=== PATIENT | male | born 1970 | race African-American/Black ===

== ENCOUNTER 2016-08-28 17:19 | Emergency (ER) | payer OTHER ==
[~2016-08-28] VITALS: Ht 165.1 cm; Wt 97.2 kg
[2016-08-28 18:08] LABS: ADD MIUA? NO; BILIRUBIN NEGATIVE; BLOOD NEGATIVE; COLOR STRAW ((YELLOW)); GLUCOSE (STRIP) >=500; KETONES NEGATIVE; LEUKOCYTES NEGATIVE; NITRITE NEGATIVE; PROTEIN (STRIP) NEGATIVE; SPECIFIC GRAVITY 1.027 (1.000-1.030); UCUL ADDED? NO; UROBILINOGEN 0.2 MG/DL (0.2-1.0)
[2016-08-28 18:14] LABS: EOSINOPHIL (%) 1.5 % (0-5); EOSINOPHIL COUNT 0.1 K/uL (0-0.3); HEMATOCRIT 44.6 % (38.0-50.0); IMMATURE GRANULOCYTE (%) 0.2 % (0.0-0.7); INSTRUMENT ABS NEUTROPHIL CT 2.5 K/uL; LYMPHOCYTE COUNT 2.1 K/uL (1.0-2.8); MCH 28.2 PG (29.0-34.0); MCHC 34.5 G/DL (30.0-36.0); MCV 81.5 FL (86-99); MEAN PLAT.VOLUME 9.5 uM^3 (9.0-12.4); MONOCYTE (%) 10.9 % (3-12); MONOCYTE COUNT 0.6 K/uL (0-0.8); NEUTROPHIL (%) 48.1 % (45-76); NEUTROPHIL COUNT 2.5 K/uL (1.8-6.4); PLATELET COUNT 378 K/uL (156-360); RBC DIS.WIDTH-CV 11.8 % (11.8-14.6); RBC DIS.WIDTH-SD 34.6 % (39-53); RED BLOOD COUNT 5.47 M/uL (4.00-5.50); WHITE BLOOD COUNT 5.2 K/uL (4.1-10.2)
[2016-08-28 18:26] LABS: CHLORIDE 95 mEq/L (99-109); POTASSIUM 4.4 mEq/L (3.7-5.4); SODIUM 130 mEq/L (136-147)
[2016-08-28 18:29] LABS: ANION GAP 15 MEQ/L (2-14)
[2016-08-28 18:30] LABS: TOTAL BILIRUBIN 0.4 mg/dL (0.0-1.0)
[2016-08-28 18:32] LABS: ALKALINE PHOSPHATASE 114 IU/L (3-129); GFR ESTIMATE (CALCULATED) > 59 mL/min/
[2016-08-28 18:33] LABS: UREA NITROGEN (BUN) 16 mg/dL (9-23)
[2016-08-28 18:41] LABS: GLUCOSE 603 mg/dL (70-99)
[2016-08-28] MEDS ORDERED: GLUCOMETER MC (21:00)
[2016-08-28] MEDS ORDERED: ALCOHOL SWAB1 EACH TP (21:00)
[2016-08-28] MEDS ORDERED: TEST STRIPS MC (21:00)
[2016-08-28] MEDS ORDERED: LANCETS1 EACH MC (21:00)
[2016-08-28 21:01] LABS: POINT-OF-CARE METER ID UU13113778
[2016-08-28 21:44] VITALS: BP 0/0
[2016-08-29 10:17] LABS: POINT-OF-CARE METER ID UU13113778
== END 2016-08-28 21:45 | disposition home or self-care (01) ==
LOC: EME 17:19
PROVIDERS: Physician Assistant
DX: E11.65 Type 2 diabetes mellitus with hyperglycemia (principal); F17.200 Nicotine dependence, unspecified, uncomplicated
CPT/HCPCS: 80053; 81003; 82010; 82800; 82948; 85025; 99281; 99285; J7030

== ENCOUNTER 2017-09-30 03:00 | Observation (INO) | payer OTHER ==
[~2017-09-30] VITALS: Ht 167.6 cm; Wt 81.6 kg
[~2017-09-30 03:00] MED LIST: ALCOHOL SWAB1 EACH TP; GLUCOMETER MC; LANCETS1 EACH MC; TEST STRIPS MC
[2017-09-30 03:21] LABS: HEMATOCRIT 36.9 % (38.0-50.0); HEMOGLOBIN 13.2 G/DL (12.5-16.6); MCH 29.7 PG (29.0-34.0); MCHC 35.8 G/DL (30.0-36.0); MCV 82.9 FL (86-99); PLATELET COUNT 363 K/uL (156-360); RBC DIS.WIDTH-CV 12.3 % (11.8-14.6); RBC DIS.WIDTH-SD 37.4 % (39-53); RED BLOOD COUNT 4.45 M/uL (4.00-5.50); WHITE BLOOD COUNT 15.9 K/uL (4.1-10.2)
[2017-09-30 03:33] LABS: ALBUMIN 4.1 g/dL (3.2-4.8); CHLORIDE 106 mEq/L (99-109); POTASSIUM 3.4 mEq/L (3.7-5.4); SODIUM 139 mEq/L (136-147)
[2017-09-30 03:35] LABS: TOTAL PROTEIN 6.6 g/dL (6.4-8.3)
[2017-09-30 03:37] LABS: TOTAL BILIRUBIN 0.4 mg/dL (0.0-1.0)
[2017-09-30 03:38] LABS: GLUCOSE 32 mg/dL (70-99)
[2017-09-30 03:39] LABS: ALKALINE PHOSPHATASE 80 IU/L (3-129); CREATININE 0.8 mg/dL (0.6-1.3); GFR ESTIMATE (CALCULATED) > 59 mL/min/ (58.99-99999)
[2017-09-30 03:40] LABS: AST (GOT) 22 IU/L (2-34); UREA NITROGEN (BUN) 11 mg/dL (9-23)
[2017-09-30 03:42] LABS: ALT (GPT) 15 IU/L (3-49); LIPASE 49 U/L (1.0-51.0)
[2017-09-30 04:23] LABS: APPEARANCE CLEAR ((CLEAR)); BILIRUBIN NEGATIVE; BLOOD NEGATIVE; COLOR YELLOW ((YELLOW)); GLUCOSE (STRIP) NEGATIVE; KETONES NEGATIVE; LEUKOCYTES NEGATIVE; NITRITE NEGATIVE; PROTEIN (STRIP) NEGATIVE; UCUL ADDED? NO; UROBILINOGEN 0.2 MG/DL (0.2-1.0)
[2017-09-30 04:34] LABS: SERUM ETHYL ALCOHOL < 10 mg/dL
[2017-09-30 05:10] LABS: TROP-I INTERPRETATION NEGATIVE; TROPONIN-I < 0.01 ng/mL (0.0-0.30)
[2017-09-30 06:44] VITALS: BP 170/81
[2017-09-30 07:25] VITALS: BP 168/77
[2017-09-30] MEDS ORDERED: METFORMIN HCL1000 MG PO (10:38)
[2017-09-30] MEDS ORDERED: LIPITOR80 MG PO (10:39)
[2017-09-30] MEDS ORDERED: GLIPIZIDE10 MG PO (10:39)
[2017-09-30] MEDS ORDERED: LISINOPRIL5 MG PO (10:40)
[2017-09-30 11:42] VITALS: BP 149/78
[2017-09-30 15:46] VITALS: BP 140/71
[2017-09-30 19:45] VITALS: BP 152/70
[2017-09-30 23:52] VITALS: BP 132/74
[2017-10-01 04:06] VITALS: BP 148/66
[2017-10-01 07:57] VITALS: BP 168/65
[2017-10-01 09:21] LABS: HEMATOCRIT 37.2 % (38.0-50.0); MCH 29.2 PG (29.0-34.0); MCHC 34.9 G/DL (30.0-36.0); MCV 83.6 FL (86-99); PLATELET COUNT 333 K/uL (156-360); RBC DIS.WIDTH-CV 12.4 % (11.8-14.6); RBC DIS.WIDTH-SD 37.6 % (39-53); RED BLOOD COUNT 4.45 M/uL (4.00-5.50); WHITE BLOOD COUNT 5.3 K/uL (4.1-10.2)
[2017-10-01 09:46] LABS: CHLORIDE 104 MEQ/L (99-109); CREATININE 0.8 MG/DL (0.6-1.3); GFR ESTIMATE (CALCULATED) > 59 mL/min/ (58.99-99999); GLUCOSE 190 mg/dL (70-99); POTASSIUM 4.3 MEQ/L (3.7-5.4); SODIUM 138 MEQ/L (136-147); UREA NITROGEN (BUN) 8 mg/dL (9-23)
[2017-10-01 11:16] LABS: HEMOGLOBIN A1c (GLYCOHEMOGLOB) 7.1 % (Below 5.7)
== END 2017-10-01 12:07 ==
LOC: EME → EDBD 03:00 → EME 03:00 → EDOF 05:12 → 4SOUTH 05:12 → EDOF 05:12 → 4SOUTH 05:49
PROVIDERS: Emergency Medicine; Hospitalist
DX: E11.649 Type 2 diabetes mellitus with hypoglycemia without coma (principal); T38.3X5A Adverse effect of insulin and oral hypoglycemic [antidiabetic] drugs, initial encounter; I10 Essential (primary) hypertension; E78.5 Hyperlipidemia, unspecified; F17.210 Nicotine dependence, cigarettes, uncomplicated; F11.10 Opioid abuse, uncomplicated; Z79.84 Long term (current) use of oral hypoglycemic drugs; D72.829 Elevated white blood cell count, unspecified
CPT/HCPCS: 71045; 80048; 80053; 81003; 82948; 83036; 83525; 83690; 84484; 84681; 85027; 93005; 99281; 99284; G0378; G0480; J1644; J7030; J7042; J7060; J7070